=== PATIENT | male | born 1975 | race Caucasian/White ===

== ENCOUNTER 2016-09-09 21:04 | Emergency (ER) | payer SELFPAY ==
[2016-09-09 21:36] VITALS: RESP 20
[2016-09-09] MEDS ORDERED: Fluorescein 1 mg Ophthalmic Strip ONE (22:00)
[2016-09-09] MEDS ORDERED: Tetracaine 0.5% Ophth (OR ONLY) ONE (22:00)
[2016-09-09] MEDS ORDERED: Oxycodone/Acetaminophen 5/325 mg Tab PO STA (22:00)
[2016-09-09] MEDS ORDERED: Oxycodone/Acetaminophen 5/325 mg Tab ONE (22:03)
--- NOTE | 2016-09-09 22:16 | C.PDOC ---
History Of Present Illness 40 year old male presents to the ED with complaints of pain to his right forehead, scalp and bilateral eye redness with itching and sneezing for the past four days. Patient states he was seen by his PMD and was given allergy medications including Zithromax, nasal spray, Anitra, and anti-allergy medicines. He denies any trauma or decreased visual acuity. Time Seen by Provider: 09/09/16 21:38 Chief Complaint (Nursing): Eye Problem History Per: Patient History/Exam Limitations: no limitations Onset/Duration Of Symptoms: Days (four days ) Current Symptoms Are (Timing): Still Present Injury To Eye?: No Associated Symptoms: Itching. denies: Decreased Vision Recent travel outside of the [place]: No Past Medical History Reviewed: Historical Data, Nursing Documentation, Vital Signs Vital Signs: Last Vital Signs Temp 97.3 F L 09/09/16 22:33 Pulse 93 H 09/09/16 22:33 Resp 20 09/09/16 22:33 BP 127/86 09/09/16 22:33 Pulse Ox 98 09/10/16 05:13 Family History: States: No Known Family Hx - Social History Hx Alcohol Use: No Hx Substance Use: No Review Of Systems Constitutional: Negative for: Fever, Chills, Sweats Eyes: Positive for: Redness (bilaterally ). Negative for: Vision Change Cardiovascular: Negative for: Chest Pain, Palpitations Respiratory: Negative for: Cough, Shortness of Breath Gastrointestinal: Negative for: Nausea, Vomiting, Abdominal Pain, Diarrhea Musculoskeletal: Positive for: Other (right forehead and scalp pain ) Physical Exam - Physical Exam Appears: Non-toxic, No Acute Distress Skin: Warm, Dry, No Rash (no facial rash ) Head: Other (vesicular lesion to right frontal scalp not extending below right eyebrow) Eye(s): bilateral: PERRL, EOMI, Other (redness to right eye persistent with no pain. No corneal abrasions, no dendritic lesions. Minimal conjunctiva erythema. Visual acuity in normal limits. ) Neck: Supple Chest: Symmetrical, No Deformity Cardiovascular: Rhythm Regular Respiratory: No Rales, No Rhonchi, No Stridor, No Wheezing Gastrointestinal/Abdominal: Soft, No Tenderness, No Distention, No Guarding, No Rebound Extremity: Normal ROM, No Tenderness Neurological/Psych: Oriented x3 ED Course And Treatment O2 Sat by Pulse Oximetry: 98 (room air ) Disposition Counseled Patient/Family Regarding: Diagnosis, Need For Followup - Disposition Disposition: HOME/ ROUTINE Disposition Time: 22:14 Condition: STABLE Additional Instructions: Please take medications as directed Follow up with PMD in 2 days Return to ER if worse Prescriptions: oxyCODONE/Acetaminophen [Percocet 5/325 mg Tab] 1 tab PO QID PRN #14 tab PRN Reason: Pain Valacyclovir HCl [Valtrex] 1 gm PO TID #21 tablet Instructions: Shingles (ED) - Clinical Impression Clinical Impression: Herpes zoster - Scribe Statement The provider has reviewed the documentation as recorded by the Luisibluiza Mcghee All medical record entries made by the Luisibluiza were at my direction and personally dictated by me. I have reviewed the chart and agree that the record accurately reflects my personal performance of the history, physical exam, medical decision making, and the department course for this patient. I have also personally directed, reviewed, and agree with the discharge instructions and disposition.
[2016-09-09 22:34] VITALS: BP 127/86; PULSE 93; TEMP 97.3
[2016-09-10 04:27] VITALS: O2SAT 98
== END 2016-09-09 22:45 | disposition home or self-care (01) ==
LOC: C.ER 21:04
DX: B02.9 Zoster without complications (principal)